=== PATIENT | female | born 1990 | race Two or more races ===

== ENCOUNTER 2024-02-11 07:56 | Day surgery (SDC) | payer OTHER ==
[2024-02-10 09:19] LABS: Urine Bacteria None Seen /hpf (None Seen)
[2024-02-10 09:27] LABS: Basophils # (auto) 0 10 ^3/uL (0-0.2); Basophils % (auto) 0.6 % (0.0-2.0); Eosinophils # (auto) 0.1 10 ^3/uL (0-0.8); Eosinophils % (auto) 2.2 % (0.0-7.0); Hematocrit 43.9 % (36.0-46.0); Hemoglobin 15.3 g/dL (12.2-16.2); Lymphocytes # (auto) 1.5 10 ^3/uL (0.4-5.4); Lymphocytes % (auto) 22.5 % (10.0-50.0); Mean Corpuscular Hemoglobin 31.1 pg (28.0-32.0); Mean Corpuscular Hgb Conc. 34.9 g/dL (32.0-36.0); Mean Corpuscular Volume 89.1 fL (80.0-100.0); Monocytes # (auto) 0.5 10 ^3/uL (0-1.3); Monocytes % (auto) 7.6 % (0.0-12.0); Neutrophils # (auto) 4.5 10 ^3/uL (1.6-8.6); Neutrophils % (auto) 67.1 % (37.0-80.0); Nucleated Red Blood Cells % 0.1 %; Platelet Count (auto) 186 10^3/uL (140-450); Red Blood Cells 4.92 10^6/uL (4.0-5.20); Red Cell Distribution Width 13.1 % (11.8-14.3); White Blood Cell 6.7 10^3/uL (4.4-10.8)
[2024-02-10 09:49] LABS: INR 1.04 (0.9-1.15); Partial Thromboplastin Time 27.6 SEC (24.5-34.5); Urine Blood 3+ /uL (Negative); Urine Clarity Clear (Clear); Urine Color Light-Yellow (Yellow); Urine Protein, UAD Negative (Negative); Urine Specific Gravity 1.018 (1.001-1.035); Urine Urobilinogen Normal (Negative); Urine WBC 1 /hpf (0 - 5)
[2024-02-10 10:50] LABS: Alanine Aminotransferase 21 U/L (7-40); Albumin 4.2 g/dL (3.2-4.8); Alkaline Phosphatase 51 U/L (46-116); Anion Gap 7 (5-15); Aspartate Aminotransferase 16 U/L (13-40); BUN/Creatinine Ratio 19.5 (10.0-20.0); Bilirubin, Total 0.4 mg/dL (0.2-1.0); Blood Urea Nitrogen 17 mg/dL (9-23); Calcium 9.1 mg/dL (8.7-10.4); Carbon Dioxide 24 mmol/L (20-30); Chloride 109 mmol/L (98-107); Glucose 94 mg/dL (74-106); Potassium 4.3 mmol/L (3.5-5.1); Sodium 140 mmol/L (136-145); Total Protein 6.6 g/dL (5.7-8.2)
[~2024-02-11] VITALS: Ht 160 cm; Wt 122.5 kg
[2024-02-11] MEDS ORDERED: ceFAZolin 2 GM/D5W100ml 100 ML IV ONE (09:06)
[2024-02-11] MEDS ORDERED: LIDOCAINE W/ EPINEPHRINE 1% 20ML VIAL ONE (09:44)
[2024-02-11] MEDS ORDERED: BUPIVACAINE 0.25% INJ 50ML VIAL ONE (09:44)
[2024-02-11] MEDS ORDERED: PROPOFOL 10 MG/ML 20 ML IV ONE (09:46)
[2024-02-11] MEDS ORDERED: SODIUM CHLORIDE LOCK 10 ML ONE (09:46)
[2024-02-11] MEDS ORDERED: NEOSTIGMINE 1 MG/ML INJ (10mg/10ML VIAL) ONE (09:46)
[2024-02-11] MEDS ORDERED: LIDOCAINE 1% INJ PF 5ML AMP ONE (09:46)
[2024-02-11] MEDS ORDERED: GLYCOPYRROLATE 0.2 MG/ML 1ML VIAL ONE (09:46)
[2024-02-11] MEDS ORDERED: KETAMINE 50mg/ML 1ml syringe ONE (09:46)
[2024-02-11] MEDS ORDERED: MEPERIDINE HCL (50 MG/ML) 1 ML VIAL ONE (09:46)
[2024-02-11] MEDS ORDERED: MIDAZOLAM HCL 2MG/2ML 2ml VIAL (1mg/ml) ONE (09:46)
[2024-02-11] MEDS ORDERED: ROCURONIUM 10MG/ML 10ML VIAL IV ONE (09:46)
[2024-02-11] MEDS ORDERED: ONDANSETRON HCL 4 MG/2 ML VIAL ONE (09:46)
[2024-02-11] MEDS ORDERED: MORPHINE SULFATE INJ 2 MG/ml SYRG IV PRN (10:00)
[2024-02-11] MEDS ORDERED: fentaNYL CITRATE 100 MCG/2 ML VL IV PRN (10:00)
[2024-02-11] MEDS ORDERED: KETOROLAC TROMETH 30 MG/ML 1ML VIAL IV ONE (10:00)
[2024-02-11] MEDS ORDERED: HYDROmorphone HCL 2 MG/ML VL/or syr IV PRN ×2 (10:00)
[2024-02-11] MEDS ORDERED: fentaNYL CITRATE 100 MCG/2 ML VL ONE (10:12)
[2024-02-11 10:44] VITALS: PULSE 89; RESP 12; TEMP 98.5; O2SAT 95
[2024-02-11] MEDS: METOCLOPRAMIDE HCL 5MG/ml INJ 2ml VIAL IV ONE (11:15)
[2024-02-11 11:20] VITALS: BP 124/64; PULSE 71; RESP 14; O2SAT 98
--- NOTE | 2024-02-11 15:15 | DVHOP ---
DATE OF SURGERY: 02/11/2024 PREOPERATIVE DIAGNOSIS: Right breast mass. POSTOPERATIVE DIAGNOSIS: Right breast mass. SURGEON: Wayne Mullins MD BROADCAST SYSTEMS ENGINEER: Andrea Reese NP ANESTHESIA: General endotracheal. ANESTHESIOLOGIST: Dr. Sebastian. PROCEDURE: Right excisional biopsy of breast. DESCRIPTION OF PROCEDURE: Under adequate anesthesia, with the patient's skin prepped and draped and infiltrated with 0.25% Marcaine with epinephrine for assistance with anesthesia ____ surgery and the breast mass having been previously located and marked by the patient and her in the preoperative area. Incision was made over the palpable lesion. Skin adipose tissue and breast tissue divided with cautery and the mass was grasped with an Allis forceps and placed on tension. The entire mass with surrounding breast tissue and fat was excised and submitted for histopathologic examination. The wound was irrigated, hemostasis meticulously accomplished, closure accomplished using 3-0 Monocryl sutures, Dermabond glue and Steri-Strips. A circumferential David wrap was applied. The patient remained stable throughout the procedure, left the operating room following an accurate needle and sponge count. Her was thoroughly informed in the waiting area. Wayne Mullins MD PF TID: [id number] RECEIPT: [id number]
[2024-02-12] MEDS ORDERED: METHYLENE BLUE 0.5% 5MG/ML 10ml AMP IV ONE (09:56)
== END 2024-02-11 11:46 | disposition home or self-care (01) ==
LOC: SUR 07:56
PROVIDERS: ATTEND Surgery
DX: N63.10 Unspecified lump in the right breast, unspecified quadrant (principal); N64.1 Fat necrosis of breast; N60.31 Fibrosclerosis of right breast; N61.0 Mastitis without abscess; E66.01 Morbid (severe) obesity due to excess calories; Z90.89 Acquired absence of other organs; Z98.891 History of uterine scar from previous surgery; Z68.42 Body mass index [BMI] 45.0-49.9, adult; Z80.3 Family history of malignant neoplasm of breast
CPT/HCPCS: 19120; 36415; 80053; 81001; 84702; 85025; 85610; 85730; 88305; 88342; J2175; J2250; J2405; J2704; J2765; J3010; J3490

== ENCOUNTER 2024-03-05 06:12 | Day surgery (SDC) | payer OTHER ==
[2024-03-02 14:38] LABS: Urine Bacteria None Seen /hpf (None Seen); Urine WBC None Seen /hpf (0 - 5)
[2024-03-02 14:56] LABS: Basophils # (auto) 0 10 ^3/uL (0-0.2); Basophils % (auto) 0.5 % (0.0-2.0); Eosinophils # (auto) 0.1 10 ^3/uL (0-0.8); Eosinophils % (auto) 1.9 % (0.0-7.0); Hemoglobin 14.8 g/dL (12.2-16.2); Lymphocytes # (auto) 1.3 10 ^3/uL (0.4-5.4); Lymphocytes % (auto) 18.8 % (10.0-50.0); Mean Corpuscular Hgb Conc. 34.4 g/dL (32.0-36.0); Mean Corpuscular Volume 90.3 fL (80.0-100.0); Monocytes # (auto) 0.6 10 ^3/uL (0-1.3); Monocytes % (auto) 8.7 % (0.0-12.0); Neutrophils # (auto) 4.9 10 ^3/uL (1.6-8.6); Neutrophils % (auto) 70.1 % (37.0-80.0); Nucleated Red Blood Cells % 0.1 %; Platelet Count (auto) 193 10^3/uL (140-450); Red Blood Cells 4.76 10^6/uL (4.0-5.20); Red Cell Distribution Width 12.9 % (11.8-14.3); White Blood Cell 6.9 10^3/uL (4.4-10.8)
[2024-03-02 15:08] LABS: Urine Blood 1+ /uL (Negative); Urine Clarity Clear (Clear); Urine Color Light-Yellow (Yellow); Urine Mucus FEW (None Seen); Urine Protein, UAD Negative (Negative); Urine Specific Gravity 1.019 (1.001-1.035); Urine Urobilinogen Normal (Negative); Urine pH 6.5 (5.0-9.0)
[2024-03-02 15:10] LABS: INR 1.04 (0.9-1.15); Partial Thromboplastin Time 27.9 SEC (24.5-34.5)
[2024-03-02 15:14] LABS: Alanine Aminotransferase 17 U/L (7-40); Albumin 4.3 g/dL (3.2-4.8); Alkaline Phosphatase 55 U/L (46-116); Anion Gap 7 (5-15); Aspartate Aminotransferase 9 U/L (13-40); BUN/Creatinine Ratio 12.3 (10.0-20.0); Bilirubin, Total 0.5 mg/dL (0.2-1.0); Blood Urea Nitrogen 10 mg/dL (9-23); Calcium 9.5 mg/dL (8.7-10.4); Carbon Dioxide 24 mmol/L (20-31); Chloride 111 mmol/L (98-107); Glucose 91 mg/dL (74-106); Potassium 3.9 mmol/L (3.5-5.1); Sodium 142 mmol/L (136-145); Total Protein 6.8 g/dL (5.7-8.2)
[~2024-03-05] VITALS: Ht 160 cm; Wt 124.7 kg
[2024-03-05] MEDS ORDERED: ceFAZolin 2 GM/D5W100ml 100 ML IV ONE (06:37)
[2024-03-05] MEDS ORDERED: ZOFR4T PO (07:11)
[2024-03-05] MEDS ORDERED: HYDR-4072 PO (07:11)
[2024-03-05] MEDS ORDERED: LACTATED RINGER'S 1,000 ML IV SCH (07:15)
[2024-03-05] MEDS ORDERED: ONDANSETRON HCL 4 MG/2 ML VIAL IV PRN (07:15)
[2024-03-05] MEDS ORDERED: fentaNYL CITRATE 100 MCG/2 ML VL ONE (07:20)
[2024-03-05 07:50] VITALS: RESP 18; TEMP 97.8; O2SAT 100
[2024-03-05] MEDS ORDERED: HYDROmorphone HCL 2 MG/ML VL/or syr IV PRN (08:15)
[2024-03-05] MEDS ORDERED: ONDANSETRON HCL 4 MG/2 ML VIAL IV ONE (08:15)
[2024-03-05] MEDS ORDERED: hydrALAZINE HCL 20 MG/ML VL IV PRN (08:15)
[2024-03-05] MEDS ORDERED: ePHEDrine SULFATE 50 MG/ML AMP IV PRN (08:15)
[2024-03-05] MEDS ORDERED: MORPHINE SULFATE 4 MG/ML SYR/VIAL IV PRN (08:15)
[2024-03-05] MEDS ORDERED: MIDAZOLAM HCL 2MG/2ML 2ml VIAL (1mg/ml) IV PRN (08:15)
[2024-03-05 08:20] VITALS: BP 123/67; PULSE 79; RESP 11; O2SAT 98
[2024-03-05] MEDS ORDERED: DexAMETHasone SOD PHOS 10MG/1ML VIAL INJ ONE (08:22)
[2024-03-05] MEDS ORDERED: PROPOFOL 10 MG/ML 20 ML IV ONE (08:22)
== END 2024-03-05 08:35 | disposition home or self-care (01) ==
LOC: SUR 06:12
PROVIDERS: ATTEND Obstetrics & Gynecology
DX: T83.32XA Displacement of intrauterine contraceptive device, initial encounter (principal); N93.9 Abnormal uterine and vaginal bleeding, unspecified; E66.01 Morbid (severe) obesity due to excess calories; Z90.89 Acquired absence of other organs; Z98.891 History of uterine scar from previous surgery; Y83.8 Other surgical procedures as the cause of abnormal reaction of the patient, or of later complication, without mention of misadventure at the time of the procedure
CPT/HCPCS: 36415; 58558; 58579; 80053; 81001; 81025; 84702; 85025; 85610; 85730; 86850; 86900; 86901; J1100; J2704; J3010